=== PATIENT | male | born 1995 | race Hispanic/Latino ===

== ENCOUNTER 2019-01-17 22:46 | Emergency (ER) | payer BC ==
[~2019-01-17] VITALS: Ht 175.3 cm; Wt 104.3 kg
--- OUTSIDE RECORDS SUMMARY | 2019-01-17 22:49 | XMS REPORT | Continuity of Care Document ---
Author Author [facility] Address Unknown Phone Unavailable Care Team Providers Care Supervisor In Circuit Testing Name Role Phone [employer] Information [employer] Unavailable Unavailable Problems Problem Status Onset Date Classification Date Reported Comments Source Discharge Diagnosis: Suture check 12/29/2014 01/01/2015 [facility] WOUND CARE Active 12/29/2014 [facility] Discharge Diagnosis: Accidental laceration 12/20/2014 12/23/2014 [facility] LACERATION Active 12/20/2014 [facility] Medications No Data Provided for This Section Allergies, Adverse Reactions, Alerts No Known Medication Allergies Immunizations No Data Provided for This Section Results No Data Provided for This Section Pathology Reports No Data Provided for This Section Diagnostic Reports No Data Provided for This Section Consultation Notes No Data Provided for This Section Discharge Summaries No Data Provided for This Section History and Physicals No Data Provided for This Section Vital Signs Vital Sign Value Date Comments Source BMI Calculated 29 12/29/2014 [facility] Temperature Oral (F) 98.0 F 12/29/2014 [facility] Height 175.26 cm 12/29/2014 [facility] Weight 89.091 12/29/2014 [facility] Systolic (mm Hg) 133 12/29/2014 [facility] Diastolic (mm Hg) 84 12/29/2014 [facility] Heart Rate 64 12/29/2014 [facility] Respitory Rate 18 12/29/2014 [facility] Respitory Rate 16 12/20/2014 [facility] Systolic (mm Hg) 127 12/20/2014 [facility] Diastolic (mm Hg) 79 12/20/2014 [facility] Temperature Oral (F) 98.1 F 12/20/2014 [facility] Heart Rate 71 12/20/2014 [facility] Weight 88.636 12/20/2014 [facility] Temperature Oral (F) 98.3 F 12/20/2014 [facility] Heart Rate 74 12/20/2014 [facility] Respitory Rate 18 12/20/2014 [facility] Height 175.26 cm 12/20/2014 [facility] BMI Calculated 28.86 12/20/2014 [facility] Systolic (mm Hg) 143 12/20/2014 [facility] Diastolic (mm Hg) 83 12/20/2014 [facility] Encounters Location Location Details Encounter Type Encounter Number Reason For Visit Attending Provider ADM Date DC Date Status Source [facility] [id number] Elie Doris 12/20/2014 12/20/2014 [facility] [id number] Angélica Cullenooqi 12/29/2014 12/29/2014 [facility] Procedures No Data Provided for This Section Assessment and Plan No Data Provided for This Section Plan of Care No Data Provided for This Section Social History Social History Date Source Social History TypeResponse Smoking Status Never smoker; Exposure to Tobacco Smoke None; Cigarette Smoking Last 365 Days No; Reg Smoking Cessation Counseling Yes 12/29/2014 [facility] Family History No Data Provided for This Section Advance Directives No Data Provided for This Section Functional Status No Data Provided for This Section
--- OUTSIDE RECORDS SUMMARY | 2019-01-17 22:49 | XMS REPORT | Summary of Care ---
Author Author [facility] Organization [facility] Address Unknown Phone Unavailable Encounter JOSUE Moreno(VENU) [id number] Date(s): 12/20/14 - 12/20/14 [facility] [address] [place] [address]- Discharge Diagnosis: Accidental laceration Discharge Disposition: Home Attending Physician: Elie George MD Vital Signs Most recent to 1 2 oldest [Reference Range]: Height 175.26 cm (12/20/14 11:39 AM) Most recent to 1 2 oldest [Reference Range]: Temperature Oral 98.1 DegF 98.3 DegF [96.4-99.1 DegF] (12/20/14 12:10 PM) (12/20/14 11:39 AM) Most recent to 1 2 oldest [Reference Range]: Blood Pressure 127/79 mmHg 143/83 mmHg [90-140/60-90 mmHg] (12/20/14 12:10 PM) *HI* (12/20/14 11:39 AM) Most recent to 1 2 oldest [Reference Range]: Respiratory Rate 16 BRMIN 18 BRMIN [14-20 BRMIN] (12/20/14 12:10 PM) (12/20/14 11:39 AM) Most recent to 1 2 oldest [Reference Range]: Peripheral Pulse 71 bpm 74 bpm Rate [60-100 bpm] (12/20/14 12:10 PM) (12/20/14 11:39 AM) Most recent to 1 2 oldest [Reference Range]: Weight 88.636 kg (12/20/14 11:39 AM) Most recent to 1 2 oldest [Reference Range]: Body Mass Index 28.86 m2 (12/20/14 11:39 AM) Problem List No data available for this section Allergies, Adverse Reactions, Alerts Substance Reaction Severity Status NKDA Active Medications No data available for this section Results No data available for this section Immunizations No data available for this section Procedures No data available for this section Social History Social History Type Response Smoking Status Never smoker; Exposure to Tobacco Smoke None; Cigarette Smoking Last 365 Days No; Reg Smoking Cessation Counseling Yes Assessment and Plan No data available for this section
--- OUTSIDE RECORDS SUMMARY | 2019-01-17 22:49 | XMS REPORT ---
Author Author Gigi Roper Organization [employer] Address Unknown Phone Unavailable Care Team Providers Care Washateria Attendant Name Role Phone Gigi Roper CP Unavailable Allergies, Adverse Reactions, Alerts Substance Reaction Event Type N.K.D.A. Info Not Available Non Drug Allergy Problems Problem Type Condition Code Onset Dates Condition Status Assessment Edema of larynx J38.4 Active Assessment Nasal airway obstruction J34.89 Active Assessment Acute nasopharyngitis J00 Active Assessment Acute tonsillitis J03.90 Active Assessment Cough R05 Active Assessment Postnasal drip R09.82 Active Assessment Acute pharyngitis J02.9 Active Medications Medication Code System Code Instructions Start Date End Date Status Dosage PredniSONE [facility] [id number] 10 MG Orally Twice daily x 4 days then Once a day x 4 days May 13, 2018 May 21, 2018 Active 1 tablet Augmentin [facility] [id number] 875-125 MG Orally every 12 hrs May 13, 2018 May 23, 2018 Active 1 tablet Mucinex [facility] [address]-33 Active not defined Results No Known Results Summary Purpose [employer] Submission
--- OUTSIDE RECORDS SUMMARY | 2019-01-17 22:49 | XMS REPORT | Summary of Care ---
Author Author [facility] Organization [facility] Address Unknown Phone Unavailable Encounter JOSUE Moreno(VENU) [id number] Date(s): 12/29/14 - 12/29/14 [facility] [address] [place] [address]- Discharge Diagnosis: Suture check Discharge Disposition: Home Attending Physician: Angélica Ca DO Vital Signs Most recent to 1 oldest [Reference Range]: Height 175.26 cm (12/29/14 12:28 PM) Most recent to 1 oldest [Reference Range]: Temperature Oral 98.0 DegF [96.4-99.1 DegF] (12/29/14 12:28 PM) Most recent to 1 oldest [Reference Range]: Blood Pressure 133/84 mmHg [90-140/60-90 mmHg] (12/29/14 12:28 PM) Most recent to 1 oldest [Reference Range]: Respiratory Rate 18 BRMIN [14-20 BRMIN] (12/29/14 12:28 PM) Most recent to 1 oldest [Reference Range]: Peripheral Pulse 64 bpm Rate [60-100 bpm] (12/29/14 12:28 PM) Most recent to 1 oldest [Reference Range]: Weight 89.091 kg (12/29/14 12:28 PM) Most recent to 1 oldest [Reference Range]: Body Mass Index 29 m2 (12/29/14 12:28 PM) Problem List No data available for this [...]
--- OUTSIDE RECORDS SUMMARY | 2019-01-17 22:49 | XMS REPORT ---
Author Author Gigi Roper Organization [employer] Address Unknown Phone Unavailable Care Team Providers Care Offset Press Operator Helper Name Role Phone Gigi Roper Unavailable Allergies No Known Allergies Problems No Known Problems Medications No Known Medications Results No Known Results Summary Purpose [employer] Submission
[2019-01-17] MEDS ORDERED: ORPHENADRINE CITRATE 30 MG/ML VIAL ONE (23:08)
[2019-01-17] MEDS ORDERED: KETOROLAC TROMETHAMINE 60 MG/2 ML VIAL IM ONE (23:15)
[2019-01-17] MEDS ORDERED: ORPHENADRINE CITRATE 30 MG/ML VIAL IM ONE (23:15)
== END 2019-01-17 23:50 | disposition home or self-care (01) ==
LOC: ER 22:46
DX: S39.012A Strain of muscle, fascia and tendon of lower back, initial encounter (principal); X50.0XXA Overexertion from strenuous movement or load, initial encounter; Y93.E6 Activity, residential relocation; Y92.89 Other specified places as the place of occurrence of the external cause
CPT/HCPCS: 99282; J1885; J2360